=== PATIENT | male | born 1965 ===

== ENCOUNTER 2017-03-30 12:29 | Emergency (ER) | payer OTHER ==
[2017-03-30 12:43] VITALS: PULSE 72; RESP 16; TEMP 98; O2SAT 98
--- NOTE | 2017-03-30 12:53 | ED PDOC ---
Upper Extremity Pain/Injury Time Seen by Provider: 03/30/17 12:38 Chief Complaint (Nursing): Upper Extremity Problem/Injury Chief Complaint (Provider): Left 5th digit injury History Per: Patient History/Exam Limitations: no limitations Onset/Duration Of Symptoms: Mins Current Symptoms Are (Timing): Still Present Quality: "Pain" Additional Complaint(s): The patient is a 51yo male, no past medical history, presents to the ED for evaluation of his left 5th digit s/p injuring it prior to arrival. Patient reports he was lifting a wooden crate and a splinter went through the tip of his left pinky. He reports pain to the area but denies any active bleeding. Patient states his last tetanus shot was 1 year ago. He denies any other medical complaints. Past Medical History Reviewed: Historical Data, Nursing Documentation, Vital Signs Vital Signs: Last Vital Signs Temp 98 F 03/30/17 12:41 Pulse 72 03/30/17 12:41 Resp 16 03/30/17 12:41 BP Pulse Ox 98 03/30/17 12:41 - Medical History PMH: No Chronic Diseases - Surgical History Surgical History: No Surg Hx - Family History Family History: States: No Known Family Hx - Immunization History Hx Tetanus Toxoid Vaccination: No - Home Medications Home Medications: Ambulatory Orders Medication Instructions Recorded Ibuprofen [Motrin] 600 mg PO TID PRN #30 tab 02/12/16 Amoxicillin/Clavulanate [Augmentin 1 tab PO BID #20 tab 03/30/17 875 MG-125 MG] - Allergies Allergies/Adverse Reactions: Allergies Allergy/AdvReac Type Severity Reaction Status Date / Time No Known Allergies Allergy Verified 02/12/16 22:38 Review of Systems ROS Statement: Except As Marked, All Systems Reviewed And Found Negative Musculoskeletal: Positive for: Hand Pain (left 5th digit injury) Physical Exam - Reviewed Nursing Documentation Reviewed: Yes Vital Signs Reviewed: Yes - Physical Exam Appears: Positive for: Well, Non-toxic, No Acute Distress Skin: Positive for: Normal Color Respiratory: Negative for: Respiratory Distress Extremity: Positive for: Normal ROM, Other (injury noted to distal left 5th digit). Negative for: Deformity - ECG O2 Sat by Pulse Oximetry: 98 (RA) Pulse Ox Interpretation: Normal Medical Decision Making Medical Decision Making: Time: 1250 Impression: Left 5th digit injury Plan: -- XR Left hand ordered to see the extent of injury Time: 1300 XR Reviewed and shows no indication of fractures or dislocation. Foreign body is in soft tissue. FB to be removed; lidocaine ordered. See procedure note for further details. Scribe Attestation: Documented by Cheyanne Veliz acting as a scribe for KIRSTY Moura Provider Attestation: All medical record entries made by the Scribe were at my direction and personally dictated by me. I have reviewed the chart and agree that the record accurately reflects my personal performance of the history, physical exam, medical decision making, and the department course for this patient. I have also personally directed, reviewed, and agree with the discharge instructions and disposition. Procedures - Time-Out Type of Procedure: Foreign body removal Site of Procedure: Left 5th digit Correct Patient: Yes Correct Procedure: Yes Correct Site Marked: Yes X-Ray Marked: Yes PA/Tech: Malathi Park - Additional Procedures Progress: Foreign body removal: Area prepped and cleaned with sterile water and alcohol. 0.5 cc's of Lidocaine without Epi used. Foreign body removed from left 5th digit. Finger soaked in water and betadine solution. Wound cleaned and sterile dressing applied. Patient tolerated procedure well. Disposition - Clinical Impression Clinical Impression: Foreign body of finger - Patient ED Disposition Is Patient to be Admitted: No Counseled Patient/Family Regarding: Studies Performed, Diagnosis, Need For Followup, Rx Given - Disposition Disposition: Routine/Home Disposition Time: 14:00 Condition: GOOD Prescriptions: Amoxicillin/Clavulanate [Augmentin 875 MG-125 MG] 1 tab PO BID #20 tab Instructions: Soft Tissue Foreign Body (ED) Forms: [employer] ([place])
[2017-03-30] MEDS ORDERED: Lidocaine 1% (10 ml) Inj INFIL STA (13:17)
[2017-03-30] MEDS ORDERED: Lidocaine 1% Inj (20ml) ONE (13:21)
[2017-03-30 14:21] VITALS: BP 126/73
--- NOTE | 2017-03-30 14:26 | RAD ---
PROCEDURE: Left small finger radiographs. HISTORY: metal FB COMPARISON: None. TECHNIQUE: AP radiograph of the left hand, as well as spot oblique and lateral images of left small finger were obtained. FINDINGS: LEFT SMALL FINGER: Current study reveals a small crescentic shaped metallic foreign body within the ulnar soft tissues adjacent to the distal tuft distal phalanx 5th finger. This focus measures approximately 6.1 x 1.2 x 1.7 mm. No definitive radiographic evidence of acute displaced fracture nor dislocation. Osseous structures intact. JOINTS: Joint spaces preserved SOFT TISSUES: Normal. OTHER FINDINGS: None. IMPRESSION: There is a small crescentic shaped radiopaque/metallic foreign body within the soft tissues adjacent to the distal phalanx 5th finger as above.
== END 2017-03-30 14:20 | disposition home or self-care (01) ==
LOC: H.ER 12:29
DX: M79.5 Residual foreign body in soft tissue (principal); X50.9XXA Other and unspecified overexertion or strenuous movements or postures, initial encounter; Y93.9 Activity, unspecified